=== PATIENT | female | born 1940 ===

== ENCOUNTER 2018-05-13 08:45 | Inpatient (IN) | payer OTHER ==
[~2018-05-13] VITALS: Ht 162.6 cm; Wt 86.2 kg
[2018-05-14] MEDS ORDERED: IRON160 M1 PO (12:48)
[2018-05-14] MEDS ORDERED: JANUMET XR 50-1 EAC1 PO (12:49)
[2018-05-14] MEDS ORDERED: SYNTHROID75 MCG PO (12:49)
[2018-05-14] MEDS ORDERED: HUMALOG100 UNIT/1 (12:50)
[2018-05-14] MEDS ORDERED: HYDRALAZINE HCL25 MG PO (12:50)
[2018-05-14] MEDS ORDERED: LEVEMIR100 UNIT/1 (12:50)
[2018-05-14] MEDS ORDERED: NORVASC10 MG PO (12:51)
[2018-05-14] MEDS ORDERED: LISINOPRIL20 MG PO (12:51)
[2018-05-14] MEDS ORDERED: LIPITOR20 MG PO (12:51)
== END 2018-05-18 14:28 | DRG 470 ==
LOC: O/R 05-16 05:50 → SURH 05-16 05:50 → SURG 05-16 07:00 → SURH 05-16 17:27
PROVIDERS: Orthopaedic Surgery
PROC: 0SRD0J9 Replacement of Left Knee Joint with Synthetic Substitute, Cemented, Open Approach (ICD-10-PCS; principal; 2018-05-16 07:00)
DX: M17.12 Unilateral primary osteoarthritis, left knee (principal)